=== PATIENT | female | born 2000 ===

== ENCOUNTER → 2023-11-25 | Outpatient (CLI) | payer OTHER ==
[2023-11-25 16:20] LABS: Source, Urine Voided
[2023-11-25 17:34] LABS: Appearance, Urine Clear (Clear); Bilirubin, Urine Neg (Neg); Blood, Urine Neg (Neg); Color, Urine Yellow (P-Yellow); Glucose Qualitative, Urine Neg (Neg); Ketones, Urine 2+ (Neg); Leukocyte Esterase, Urine Neg (Neg); Nitrite, Urine Neg (Neg); Protein, Urine Neg (Neg); Urobilinogen, Urine NORM (Normal)
[2023-11-25 17:36] LABS: BASOPHILS ABSOLUTE AUTO 0.03 K/mm3 (0.00-0.23); BASOPHILS PERCENT AUTO 0 % (0-2); EOSINOPHILS ABSOLUTE AUTO 0.03 K/mm3 (0.00-0.68); EOSINOPHILS PERCENT AUTO 0 % (0-6); IMMATURE GRAN ABSOLUTE AUTO 0.03 K/mm3 (0.00-0.10); IMMATURE GRAN PERCENT AUTO 0 % (0-1); LYMPHOCYTES ABSOLUTE AUTO 0.79 K/mm3 (0.84-5.20); LYMPHOCYTES PERCENT AUTO 8 % (21-46); MONOCYTES ABSOLUTE AUTO 0.75 K/mm3 (0.16-1.47); MONOCYTES PERCENT AUTO 7 % (4-13); Mean Corpuscular HGB Conc 35.9 g/dL (31.5-36.5); Mean Corpuscular Volume 89 fL (80-100); Mean Platelet Volume 12.1 fL (9.1-12.4); NEUTROPHILS PERCENT AUTO 84 % (41-73); Platelet Count 195 K/mm3 (150-400); RDW Coefficient Variation 12.4 % (11.7-14.2); RDW Standard Deviation 40.6 fL (35.1-46.3); Red Blood Cell Count 4.37 M/mm3 (3.80-5.20); White Blood Cell Count 10.43 K/mm3 (4.00-11.30)
[2023-11-27 08:49] LABS: HIV 1,2 COMBO ANTIGEN/ANTIBODY Negative (Negative)
[2023-11-27 09:18] LABS: HEPATITIS B SURFACE ANTIGEN Negative (Negative)
[2023-11-27 10:38] LABS: HEPATITIS C AB CIA INTERP Negative (Negative); HEPATITIS C ANTIBODY CIA INDEX <0.02 IV
== END ==
LOC: LAB SHORT 16:17 → LAB 16:17
PROVIDERS: Registered Nurse Community Health
DX: Z34.91 Encounter for supervision of normal pregnancy, unspecified, first trimester (principal)
CPT/HCPCS: 81003; 84443; 86803; 87086; 87340; 87389

== ENCOUNTER → 2024-02-14 | Outpatient (CLI) | payer OTHER ==
[2024-02-16 09:29] LABS: APTIMA MEDIA TYPE Urine; C. TRACHOMATIS BY TMA Negative (Negative); N. GONORRHOEAE BY TMA Negative (Negative); SPECIMEN SOURCE Urine
== END | disposition home or self-care (01) ==
LOC: LAB 16:19 → LAB SHORT 16:19
PROVIDERS: Registered Nurse Community Health
DX: Z34.92 Encounter for supervision of normal pregnancy, unspecified, second trimester (principal)
CPT/HCPCS: 87491; 87591

== ENCOUNTER → 2024-03-08 | Outpatient (CLI) | payer OTHER ==
[2024-03-08 15:45] LABS: Hematocrit 37.2 % (33.0-51.0); Hemoglobin 12.5 g/dL (11.5-16.0)
== END ==
LOC: LAB SHORT 13:39 → LAB 13:39
PROVIDERS: Registered Nurse Community Health
DX: Z34.92 Encounter for supervision of normal pregnancy, unspecified, second trimester (principal); Z3A.27 27 weeks gestation of pregnancy
CPT/HCPCS: 82950; 85014; 85018

== ENCOUNTER 2024-06-13 19:10 | Inpatient (IN) | payer OTHER ==
[~2024-06-13] VITALS: Ht 160 cm; Wt 102.0 kg
[2024-06-13 19:38] VITALS: BP 128/68
[2024-06-13] MEDS ORDERED: Misoprostol 25 MCG Tab VAG PRN (19:55)
[2024-06-13] MEDS ORDERED: Acetaminophen 500 MG Tab PO PRN (19:55)
[2024-06-13] MEDS ORDERED: Lactated Ringer's 1,000 ML IV PRN (19:55)
[2024-06-13] MEDS ORDERED: Misoprostol 200 MCG Tab PR PRN (19:55)
[2024-06-13] MEDS ORDERED: Carboprost Tromethamine 250 MCG/ML 1ML Amp IM PRN (19:55)
[2024-06-13] MEDS ORDERED: Tranexamic Acid 100 ML IV SCH (19:55)
[2024-06-13] MEDS ORDERED: OXYTOCIN/RINGER'S LACTATE 500 ML IV PRN (19:55)
[2024-06-13] MEDS ORDERED: Ondansetron HCl 2 MG / ML 2ML Vial IV PRN (19:55)
[2024-06-13] MEDS ORDERED: Misoprostol 200 MCG Tab BC PRN (19:55)
[2024-06-13] MEDS ORDERED: Methylergonovine Maleate 0.2MG / ML 1ML Amp IM PRN (19:55)
[2024-06-13] MEDS ORDERED: Oxytocin 10 Unit / ML Vial IM PRN (19:55)
[2024-06-13] MEDS ORDERED: Calcium Carbonate 500 MG Tab Chew PO PRN (20:00)
[2024-06-13 20:40] LABS: BASOPHILS ABSOLUTE AUTO 0.04 K/mm3 (0.00-0.23); BASOPHILS PERCENT AUTO 0 % (0-2); EOSINOPHILS ABSOLUTE AUTO 0.32 K/mm3 (0.00-0.68); EOSINOPHILS PERCENT AUTO 3 % (0-6); Hematocrit 38.2 % (33.0-51.0); IMMATURE GRAN ABSOLUTE AUTO 0.04 K/mm3 (0.00-0.10); IMMATURE GRAN PERCENT AUTO 0 % (0-1); LYMPHOCYTES PERCENT AUTO 10 % (21-46); MONOCYTES ABSOLUTE AUTO 1.02 K/mm3 (0.16-1.47); MONOCYTES PERCENT AUTO 9 % (4-13); Mean Corpuscular Volume 91 fL (80-100); Mean Platelet Volume 11.5 fL (9.1-12.4); NEUTROPHILS ABSOLUTE AUTO 9.02 K/mm3 (1.96-9.15); NEUTROPHILS PERCENT AUTO 78 % (41-73); Platelet Count 193 K/mm3 (150-400); RDW Coefficient Variation 13.7 % (11.7-14.2); White Blood Cell Count 11.54 K/mm3 (4.00-11.30)
[2024-06-13 22:17] VITALS: BP 116/58
[2024-06-13 23:45] VITALS: BP 109/51
[2024-06-14] VITALS (49 sets, daily range): BP systolic 89–151; BP diastolic 50–78
[2024-06-14] MEDS ORDERED: FentaNYL Citrate 50 MCG/ML 2 ML Injection IV PRN (06:30)
[2024-06-14] MEDS ORDERED: ePHEDrine Sulfate 50 MG/ML 1ML Injection XX PRN (06:35)
[2024-06-14] MEDS ORDERED: Lactated Ringer's 1,000 ML IV SCH ×4 (06:35→21:35)
[2024-06-14] MEDS ORDERED: FentaNYL 2mcg/ml-Bup 0.1% Epd 250 ML EPI PRN (06:35)
[2024-06-14] MEDS ORDERED: OXYTOCIN/RINGER'S LACTATE 500 ML IV SCH (12:00)
[2024-06-14] MEDS ORDERED: Ibuprofen 400 MG Tab PO PRN (21:30)
[2024-06-14] MEDS ORDERED: Witch Hazel/Glycerin PADS TOP PRN (21:30)
[2024-06-14] MEDS ORDERED: Docusate Sodium 100 MG Cap PO PRN (21:35)
[2024-06-14] MEDS ORDERED: Benzocaine Topical Anesthetic Spray 60GM TOP PRN (21:35)
[2024-06-14] MEDS ORDERED: Lanolin Cream TOP PRN (21:35)
[2024-06-14] MEDS ORDERED: Ketorolac Tromethamine 30mg Vial IV PRN (21:35)
[2024-06-14] MEDS ORDERED: FLU VACC TS2024-25(6MOS UP)/PF 45 MCG/0.5 ML SYRINGE IM ONE (21:35)
[2024-06-14] MEDS ORDERED: Acetaminophen 325 MG TABLET PO PRN (21:35)
[2024-06-14] MEDS ORDERED: Benzocaine/Benzethon Topical Anesthetic Spray 78GM TOP PRN (21:55)
[2024-06-15 05:31] VITALS: BP 118/69
[2024-06-15 08:15] VITALS: BP 113/56
[2024-06-15] MEDS ORDERED: Prenatal Vit/FE Fumarate/FA 1 Tab PO SCH (09:00)
[2024-06-15 09:09] LABS: BASOPHILS ABSOLUTE AUTO 0.05 K/mm3 (0.00-0.23); BASOPHILS PERCENT AUTO 0 % (0-2); EOSINOPHILS PERCENT AUTO 1 % (0-6); Hematocrit 32.6 % (33.0-51.0); Hemoglobin 11.1 g/dL (11.5-16.0); IMMATURE GRAN ABSOLUTE AUTO 0.09 K/mm3 (0.00-0.10); IMMATURE GRAN PERCENT AUTO 1 % (0-1); LYMPHOCYTES ABSOLUTE AUTO 0.86 K/mm3 (0.84-5.20); LYMPHOCYTES PERCENT AUTO 5 % (21-46); MONOCYTES ABSOLUTE AUTO 0.86 K/mm3 (0.16-1.47); MONOCYTES PERCENT AUTO 5 % (4-13); Mean Corpuscular HGB 31.4 pg (26.0-34.0); Mean Corpuscular Volume 92 fL (80-100); Mean Platelet Volume 11.7 fL (9.1-12.4); NEUTROPHILS ABSOLUTE AUTO 14.15 K/mm3 (1.96-9.15); NEUTROPHILS PERCENT AUTO 87 % (41-73); Platelet Count 149 K/mm3 (150-400); RDW Coefficient Variation 13.7 % (11.7-14.2); RDW Standard Deviation 45.9 fL (35.1-46.3); Red Blood Cell Count 3.54 M/mm3 (3.80-5.20); White Blood Cell Count 16.21 K/mm3 (4.00-11.30)
--- NOTE | 2024-06-15 10:06 | NUR ---
SLEEPING, FRIEND SITTING WITH BABY, FRIEND ACKNOWLEDGES EVERYTHING IS GOOD
[2024-06-15 11:39] VITALS: BP 124/59
[2024-06-15] MEDS ORDERED: PRENATAL TABLE1 EAC2 PO (11:49)
[2024-06-15] MEDS ORDERED: IBUP800 PO (11:50)
[2024-06-15 15:32] VITALS: BP 112/68
[2024-06-15 19:02] VITALS: BP 126/61
--- NOTE | 2024-06-15 21:32 | NUR ---
THIS RN WALKED OUT PATIENT, FOB AND BABY TO CAR. FOB PUT BABY INTO CAR, AUDIBLE CLICK OF CAR SEAT HEAR. ADVISED PATIENT TO CALL [facility] OR PROVDIER WITH ANY FURTHER QUESTIOSN OR CONCERNS.
== END 2024-06-15 21:27 | disposition home or self-care (01) | DRG 807 ==
LOC: OBS 19:10 → BC 19:20 → OBS 19:27 → BC 19:28
PROVIDERS: Student in an Organized Health Care Education/Training Program; ADMIT Registered Nurse Community Health
PROC: 10E0XZZ Delivery of Products of Conception, External Approach (ICD-10-PCS; principal; 2024-06-14)
PROC: 10907ZC Drainage of Amniotic Fluid, Therapeutic from Products of Conception, Via Natural or Artificial Opening (ICD-10-PCS; 2024-06-14)
PROC: 0HQ9XZZ Repair Perineum Skin, External Approach (ICD-10-PCS; 2024-06-14)
PROC: 3E0R3BZ Introduction of Anesthetic Agent into Spinal Canal, Percutaneous Approach (ICD-10-PCS; 2024-06-14)
PROC: 00HU33Z Insertion of Infusion Device into Spinal Canal, Percutaneous Approach (ICD-10-PCS; 2024-06-14)
DX: O48.0 Post-term pregnancy (principal); Z37.0 Single live birth; Z3A.41 41 weeks gestation of pregnancy; O70.0 First degree perineal laceration during delivery; O69.81X0 Labor and delivery complicated by cord around neck, without compression, not applicable or unspecified
CPT/HCPCS: 36415; 51702; 85025; 86850; 86870; 86900; 86901; A9270; J1885; J2405; J2590; J3010; J7120